=== PATIENT | male | born 1985 | race Caucasian/White ===

== ENCOUNTER 2019-03-01 07:27 | Emergency (ER) | payer SELFPAY ==
[~2019-03-01] VITALS: Ht 157.5 cm; Wt 71.0 kg
[2019-03-01 09:31] VITALS: BP 120/75
== END 2019-03-01 09:32 | disposition home or self-care (01) ==
LOC: ER 07:42
DX: L73.1 Pseudofolliculitis barbae (principal); F12.10 Cannabis abuse, uncomplicated
CPT/HCPCS: 99281

== ENCOUNTER 2020-09-25 10:27 | Emergency (ER) | payer SELFPAY ==
[~2020-09-25] VITALS: Ht 167.6 cm; Wt 80.0 kg
[2020-09-25] MEDS ORDERED: FOLIC ACID 1 MG, THIAMINE HCL 100 MG, MVI, ADULT NO.1 10 ML in DEXTROSE 5% WATER 1,000 ML IV ONE ×4 (11:00)
[2020-09-25] MEDS ORDERED: LORAZEPAM 2MG/ML CPJ IV ONE (11:00)
[2020-09-25] MEDS ORDERED: SODIUM CHLORIDE 0.9% 1,000 ML IV ONE (11:00)
[2020-09-25] MEDS ORDERED: FOLIC ACID 1 MG, THIAMINE HCL 100 MG in DEXTROSE 5% WATER 1,000 ML IV ONE (11:00)
[2020-09-25 11:11] LABS: BASOPHILS % 0.6 % (0.0-2.0); EOSINOPHILS % 0.4 % (0.0-5.0); HEMATOCRIT. 38.7 % (42.0-52.0); HEMOGLOBIN. 13.3 g/dL (14.0-18.0); LYMPHOCYTES % 9.6 % (20.0-50.0); MEAN CORPUSCULAR HEMOGLOBIN 35.4 pg (28.0-32.0); MEAN CORPUSCULAR VOLUME 102.5 fL (80.0-94.0); MEAN PLATELET VOLUME 8.2 fl (7.4-10.4); MONOCYTES % 5.7 % (2.0-8.0); NEUTROPHILS % 83.7 % (40.0-76.0); PLATELET 104 x1000/uL (130-400); RED BLOOD CELL COUNT 3.77 mill/uL (4.7-6.1); RED CELL DISTRIBUTION WIDTH 14.1 % (11.6-14.6)
[2020-09-25 11:23] LABS: CHLORIDE 102 mEq/L (98-107)
[2020-09-25 11:29] LABS: ETHANOL BLOOD < 10 mg/dL
[2020-09-25] MEDS ORDERED: LORAZEPAM 2MG/ML CPJ IM PRN (14:00)
[2020-09-25 15:48] LABS: *BARBITURATES SCREEN URINE NEGATIVE (NEGATIVE); *BENZODIAZEPINES SCREEN URINE NEGATIVE (NEGATIVE); *COCAINE SCREEN URINE NEGATIVE (NEGATIVE); METHADONE URINE SCREEN NEGATIVE (NEGATIVE); OPIATES URINE SCREEN NEGATIVE (NEGATIVE); PHENCYCLIDINE URINE SCREEN NEGATIVE (NEGATIVE)
[2020-09-25 15:49] LABS: *AMPHETAMINES SCREEN URINE NEGATIVE (NEGATIVE); CANNABINOID URINE SCREEN PRESUMTIVE POSITIVE (NEGATIVE)
[2020-09-25 16:00] VITALS: BP 117/60
== END 2020-09-25 16:51 | disposition home or self-care (01) ==
LOC: ER 10:27
DX: F10.139 Alcohol abuse with withdrawal, unspecified (principal); Y90.0 Blood alcohol level of less than 20 mg/100 ml; R07.89 Other chest pain
CPT/HCPCS: 36415; 71045; 80053; 80305; 80320; 83605; 83880; 84484; 85025; 93005; 96365; 96375; 99285; J2060; J3411; J3490; J7030; J7070; G0480

== ENCOUNTER 2022-03-01 23:04 | Inpatient (IN) | payer MEDICAID ==
[~2022-03-01] VITALS: Ht 157.5 cm; Wt 65.9 kg
[2022-03-01] MEDS ORDERED: CALCIUM GLUCONATE 100MG/ML 10ML VIAL IV ONE (23:30)
[2022-03-01 23:34] LABS: BASOPHILS % 0.5 % (0.0-2.0); EOSINOPHILS % 0.1 % (0.0-5.0); LYMPHOCYTES % 8.2 % (20.0-50.0); MEAN CORPUSCULAR HEMOGLOBIN 37.6 pg (28.0-32.0); MEAN CORPUSCULAR VOLUME 115.6 fL (80.0-94.0); MEAN PLATELET VOLUME 8.3 fl (7.4-10.4); MONOCYTES % 7.7 % (2.0-8.0); NEUTROPHILS % 83.5 % (40.0-76.0); PLATELET 142 x1000/uL (130-400); RED BLOOD CELL COUNT 1.63 mill/uL (4.7-6.1)
[2022-03-01 23:41] LABS: CHLORIDE 91 mEq/L (98-107)
[2022-03-01 23:45] LABS: HEMOGLOBIN. 6.2 g/dL (14.0-18.0)
[2022-03-01 23:46] LABS: HEMATOCRIT. 18.9 % (42.0-52.0)
[2022-03-01 23:52] LABS: ETHANOL BLOOD 220 mg/dL
[2022-03-02] VITALS (19 sets, daily range): BP systolic 91–111; BP diastolic 5–62
[2022-03-02 00:20] LABS: PLATELET ESTIMATE NORMAL
[2022-03-02] MEDS ORDERED: POTASSIUM CHLORIDE 20MEQ TABLET SR PO NR (00:30)
[2022-03-02] MEDS ORDERED: LACTULOSE 20G/30ML UDC PO NR (00:30)
[2022-03-02] MEDS ORDERED: POTASSIUM CHLORIDE INJ 30 MEQ in DEXT 5%/0.9% NACL 1,000 ML IV ONE (01:00)
[2022-03-02 09:15] LABS: CHLORIDE 100 mEq/L (98-107)
[2022-03-02 09:27] LABS: CLARITY URINE CLEAR (CLEAR); COLOR URINE DARK YELLOW (YELLOW); KETONES URINE NEGATIVE (NEGATIVE); LEUKOCYTE ESTERASE URINE TRACE (NEGATIVE); NITRITE URINE POSITIVE (NEGATIVE); OCCULT BLOOD URINE NEGATIVE (NEGATIVE); PROTEIN URINE 1+ (NEGATIVE); SPECIFIC GRAVITY URINE 1.013 (1.005-1.030)
[2022-03-02 09:47] LABS: *AMPHETAMINES SCREEN URINE NEGATIVE (NEGATIVE); *BARBITURATES SCREEN URINE NEGATIVE (NEGATIVE); *BENZODIAZEPINES SCREEN URINE NEGATIVE (NEGATIVE); *COCAINE SCREEN URINE NEGATIVE (NEGATIVE); CANNABINOID URINE SCREEN PRESUMTIVE POSITIVE (NEGATIVE); METHADONE URINE SCREEN NEGATIVE (NEGATIVE); OPIATES URINE SCREEN NEGATIVE (NEGATIVE); PHENCYCLIDINE URINE SCREEN NEGATIVE (NEGATIVE)
[2022-03-02] MEDS ORDERED: POTASSIUM CHLORIDE INJ 40 MEQ in DEXT 5% WATER 250 ML IV ONE (10:45)
[2022-03-02] MEDS ORDERED: KCL 20MEQ/100ML PREMIX 100 ML IV ONE (10:45)
[2022-03-02] MEDS ORDERED: GUAIFENESIN 200MG/10ML SUGAR FREE UDC PO PRN (11:45)
[2022-03-02] MEDS ORDERED: ENOXAPARIN 40MG/0.4ML SYR SUBCUT SCH (11:45)
[2022-03-02] MEDS ORDERED: HYDRALAZINE 20MG/ML VIAL IV PRN (11:45)
[2022-03-02] MEDS ORDERED: DOCUSATE SODIUM 100MG CAPSULE PO PRN (11:45)
[2022-03-02] MEDS ORDERED: DIPHENHYDRAMINE 50MG/ML VIAL IV PRN (11:45)
[2022-03-02] MEDS ORDERED: IPRATROPIUM/ALBUTEROL 0.5-3(2.5)MG/3ML NEB HHN PRN (11:45)
[2022-03-02] MEDS ORDERED: ONDANSETRON HCL 4MG/2ML INJ IV PRN (11:45)
[2022-03-02] MEDS ORDERED: MAGNESIUM/ALUMINUM HYDROXIDE/SIMETHICONE 30ML UDC PO PRN (11:45)
[2022-03-02] MEDS ORDERED: ACETAMINOPHEN 325MG TABLET PO PRN (11:45)
[2022-03-02] MEDS ORDERED: MORPHINE SULFATE 2 MG/ML CPJ (NOT FOR IM USE) IV PRN (11:45)
[2022-03-02] MEDS ORDERED: CLONIDINE 0.1MG TABLET PO PRN (11:45)
[2022-03-02] MEDS ORDERED: POTASSIUM CHLORIDE INJ 60 MEQ in DEXT 5% WATER 500 ML IV ONE (12:00)
[2022-03-02] MEDS: DEXTROSE 5% WATER 1,000 ML IV SCH (12:04)
[2022-03-02] MEDS: CHLORDIAZEPOXIDE 25MG CAPSULE PO SCH ×2 (12:16→21:35)
[2022-03-02] MEDS ORDERED: CHLORDIAZEPOXIDE 25MG CAPSULE PO SCH (14:00)
[2022-03-02] MEDS: SODIUM CHLORIDE 0.9% INJ 3ML FLUSH IVF SCH ×2 (14:00→21:35)
[2022-03-02] MEDS: OMEPRAZOLE 20MG CAPSULE EXTENDED RELEASE PO SCH (16:33)
[2022-03-02] MEDS: MULTIVITAMINS,THER W-MINERALS TABLET PO SCH (16:33)
[2022-03-02] MEDS: FOLIC ACID 1MG TABLET PO SCH (16:33)
[2022-03-02] MEDS: HYDROCODONE/ACETAMINOPHEN 5/325MG TABLET PO PRN (16:42)
[2022-03-02 17:11] LABS: HEMOGLOBIN 6.2 g/dL (14.0-18.0)
[2022-03-02 17:12] LABS: HEMATOCRIT 18.6 % (42.0-52.0)
[2022-03-02 17:29] LABS: TOTAL IRON BINDING CAPACITY 165 ug/dL (250-450)
[2022-03-02 17:44] LABS: FERRITIN 40 ng/mL (22-322)
[2022-03-02 17:53] LABS: VITAMIN B12 SERUM 1851 pg/mL (211-911)
[2022-03-02 17:55] LABS: HEPATITIS B SURFACE ANTIGEN NEGATIVE
[2022-03-02] MEDS ORDERED: THIAMINE HCL 100 MG in SODIUM CHLORIDE 0.9% 49 ML IV NR (18:00)
[2022-03-02 18:40] LABS: INR 1.8
[2022-03-02] MEDS ORDERED: NALOXONE HCL 0.4MG/ML VIAL IV PRN (21:00)
[2022-03-02] MEDS: LACTULOSE 20G/30ML UDC PO SCH (21:35)
[2022-03-02] MEDS: RIFAXIMIN 550 MG TABLET PO SCH (21:35)
[2022-03-03] VITALS (15 sets, daily range): BP systolic 95–125; BP diastolic 49–77
[2022-03-03] MEDS: SODIUM CHLORIDE 0.9% INJ 3ML FLUSH IVF SCH ×3 (06:00→22:00)
[2022-03-03 06:29] LABS: BASOPHILS % 0.7 % (0.0-2.0); EOSINOPHILS % 0.1 % (0.0-5.0); HEMATOCRIT. 22.4 % (42.0-52.0); HEMOGLOBIN. 7.7 g/dL (14.0-18.0); MEAN CORPUSCULAR HEMOGLOBIN 35.6 pg (28.0-32.0); MEAN CORPUSCULAR VOLUME 103.4 fL (80.0-94.0); MEAN PLATELET VOLUME 8.5 fl (7.4-10.4); MONOCYTES % 8.1 % (2.0-8.0); NEUTROPHILS % 80.1 % (40.0-76.0); PLATELET 79 x1000/uL (130-400); RED BLOOD CELL COUNT 2.17 mill/uL (4.7-6.1); RED CELL DISTRIBUTION WIDTH 28.3 % (11.6-14.6)
[2022-03-03 06:43] LABS: CHLORIDE 103 mEq/L (98-107)
[2022-03-03] MEDS: CHLORDIAZEPOXIDE 25MG CAPSULE PO SCH ×3 (06:48→22:55)
[2022-03-03] MEDS: LACTULOSE 20G/30ML UDC PO SCH ×3 (06:48→22:55)
[2022-03-03] MEDS: OMEPRAZOLE 20MG CAPSULE EXTENDED RELEASE PO SCH (07:30)
[2022-03-03] MEDS: MULTIVITAMINS,THER W-MINERALS TABLET PO SCH (09:17)
[2022-03-03] MEDS: RIFAXIMIN 550 MG TABLET PO SCH ×2 (09:17→22:55)
[2022-03-03] MEDS: FOLIC ACID 1MG TABLET PO SCH (09:17)
[2022-03-03] MEDS: DEXTROSE 5% WATER 1,000 ML IV SCH (11:00)
[2022-03-03] MEDS ORDERED: POTASSIUM CHLORIDE 20MEQ TABLET SR PO NR (13:39)
[2022-03-03] MEDS: HYDROCODONE/ACETAMINOPHEN 5/325MG TABLET PO PRN (22:56)
[2022-03-04] VITALS (12 sets, daily range): BP systolic 94–110; BP diastolic 41–56
[2022-03-04] MEDS: SODIUM CHLORIDE 0.9% INJ 3ML FLUSH IVF SCH ×3 (06:00→22:04)
[2022-03-04 06:12] LABS: EOSINOPHILS % 0.1 % (0.0-5.0); HEMOGLOBIN. 7.7 g/dL (14.0-18.0); LYMPHOCYTES % 13.3 % (20.0-50.0); MEAN CORPUSCULAR HEMOGLOBIN 35.9 pg (28.0-32.0); MEAN CORPUSCULAR VOLUME 103.1 fL (80.0-94.0); MEAN PLATELET VOLUME 8.2 fl (7.4-10.4); MONOCYTES % 7.8 % (2.0-8.0); NEUTROPHILS % 77.8 % (40.0-76.0); PLATELET 71 x1000/uL (130-400); RED BLOOD CELL COUNT 2.14 mill/uL (4.7-6.1); RED CELL DISTRIBUTION WIDTH 28.5 % (11.6-14.6)
[2022-03-04 06:30] LABS: CHLORIDE 104 mEq/L (98-107)
[2022-03-04] MEDS: CHLORDIAZEPOXIDE 25MG CAPSULE PO SCH ×3 (06:45→21:58)
[2022-03-04] MEDS: LACTULOSE 20G/30ML UDC PO SCH ×3 (06:45→21:58)
[2022-03-04] MEDS: OMEPRAZOLE 20MG CAPSULE EXTENDED RELEASE PO SCH (08:45)
[2022-03-04] MEDS: MULTIVITAMINS,THER W-MINERALS TABLET PO SCH (08:45)
[2022-03-04] MEDS: RIFAXIMIN 550 MG TABLET PO SCH ×2 (08:45→21:58)
[2022-03-04] MEDS: THIAMINE HCL 100MG TABLET PO SCH (08:45)
[2022-03-04] MEDS: FOLIC ACID 1MG TABLET PO SCH (08:45)
[2022-03-04] MEDS: DEXTROSE 5% WATER 1,000 ML IV SCH (14:16)
[2022-03-05] VITALS (17 sets, daily range): BP systolic 90–111; BP diastolic 39–58
[2022-03-05] MEDS: LACTULOSE 20G/30ML UDC PO SCH ×3 (06:00→21:38)
[2022-03-05 06:38] LABS: INR 1.9
[2022-03-05] MEDS: CHLORDIAZEPOXIDE 25MG CAPSULE PO SCH ×3 (06:38→21:37)
[2022-03-05 06:40] LABS: BASOPHILS % 0.9 % (0.0-2.0); EOSINOPHILS % 0.1 % (0.0-5.0); HEMOGLOBIN. 7.1 g/dL (14.0-18.0); LYMPHOCYTES % 13.5 % (20.0-50.0); MEAN CORPUSCULAR HEMOGLOBIN 35.5 pg (28.0-32.0); MEAN CORPUSCULAR VOLUME 105.4 fL (80.0-94.0); MEAN PLATELET VOLUME 8.5 fl (7.4-10.4); MONOCYTES % 6.9 % (2.0-8.0); NEUTROPHILS % 78.6 % (40.0-76.0); PLATELET 66 x1000/uL (130-400); RED CELL DISTRIBUTION WIDTH 28.1 % (11.6-14.6)
[2022-03-05] MEDS: SODIUM CHLORIDE 0.9% INJ 3ML FLUSH IVF SCH ×3 (06:43→21:38)
[2022-03-05 06:53] LABS: CHLORIDE 102 mEq/L (98-107)
[2022-03-05] MEDS: OMEPRAZOLE 20MG CAPSULE EXTENDED RELEASE PO SCH (07:30)
[2022-03-05] MEDS: THIAMINE HCL 100MG TABLET PO SCH (09:00)
[2022-03-05] MEDS: MULTIVITAMINS,THER W-MINERALS TABLET PO SCH (09:00)
[2022-03-05] MEDS: RIFAXIMIN 550 MG TABLET PO SCH ×2 (09:00→21:37)
[2022-03-05] MEDS: FOLIC ACID 1MG TABLET PO SCH (09:00)
[2022-03-05] MEDS ORDERED: KCL 20MEQ/100ML PREMIX 100 ML IV SCH (11:00)
[2022-03-05] MEDS: PHYTONADIONE 10MG/ML AMP SUBCUT SCH (12:40)
[2022-03-05] MEDS ORDERED: POTASSIUM CHLORIDE 20MEQ TABLET SR PO NR (14:00)
[2022-03-05 15:30] LABS: HEMATOCRIT 23.1 % (42.0-52.0); HEMOGLOBIN 7.7 g/dL (14.0-18.0)
[2022-03-05 21:11] LABS: HEMATOCRIT 25.7 % (42.0-52.0); HEMOGLOBIN 8.6 g/dL (14.0-18.0)
[2022-03-06] VITALS (16 sets, daily range): BP systolic 90–105; BP diastolic 38–57
[2022-03-06 01:04] LABS: HEMATOCRIT 23.5 % (42.0-52.0); HEMOGLOBIN 7.8 g/dL (14.0-18.0)
[2022-03-06 01:35] LABS: INR 1.9; PROTHROMBIN TIME 19.6 sec (9.6-11.0)
[2022-03-06] MEDS: POTASSIUM CHLORIDE INJ 40 MEQ in DEXTROSE 5% WATER 1,000 ML IV SCH (04:05)
[2022-03-06 05:55] LABS: CHLORIDE 105 mEq/L (98-107)
[2022-03-06] MEDS: LACTULOSE 20G/30ML UDC PO SCH ×3 (06:00→21:24)
[2022-03-06 06:10] LABS: BASOPHILS % 0.8 % (0.0-2.0); HEMATOCRIT. 23.4 % (42.0-52.0); HEMOGLOBIN. 7.8 g/dL (14.0-18.0); LYMPHOCYTES % 11.2 % (20.0-50.0); MEAN CORPUSCULAR HEMOGLOBIN 34.8 pg (28.0-32.0); MEAN CORPUSCULAR VOLUME 104.1 fL (80.0-94.0); MEAN PLATELET VOLUME 8.4 fl (7.4-10.4); MONOCYTES % 7.4 % (2.0-8.0); NEUTROPHILS % 80.6 % (40.0-76.0); PLATELET 63 x1000/uL (130-400); RED BLOOD CELL COUNT 2.25 mill/uL (4.7-6.1); RED CELL DISTRIBUTION WIDTH 27.5 % (11.6-14.6)
[2022-03-06 06:14] LABS: INR 1.8; PROTHROMBIN TIME 18.5 sec (9.6-11.0)
[2022-03-06] MEDS: SODIUM CHLORIDE 0.9% INJ 3ML FLUSH IVF SCH ×3 (06:44→21:24)
[2022-03-06] MEDS: OMEPRAZOLE 20MG CAPSULE EXTENDED RELEASE PO SCH (06:44)
[2022-03-06] MEDS: CHLORDIAZEPOXIDE 25MG CAPSULE PO SCH ×3 (06:44→21:24)
[2022-03-06] MEDS: PHYTONADIONE 10MG/ML AMP SUBCUT SCH (08:21)
[2022-03-06] MEDS ORDERED: MIDAZOLAM HCL 5 MG/5 ML VIAL ONE (08:30)
[2022-03-06] MEDS ORDERED: PROPOFOL 200MG/20ML VIAL IV ONE (08:30)
[2022-03-06] MEDS ORDERED: LIDOCAINE HCL 1% 10 MG/ML 10ML VIAL ONE (08:30)
[2022-03-06] MEDS ORDERED: PHENYLEPHRINE HCL 10 MG/ML 1ML (IV VIAL) IV ONE (08:44)
[2022-03-06] MEDS ORDERED: MAGNESIUM 2 G PREMIX 50 ML IV NR (10:00)
[2022-03-06] MEDS: MULTIVITAMINS,THER W-MINERALS TABLET PO SCH (11:04)
[2022-03-06] MEDS: THIAMINE HCL 100MG TABLET PO SCH (11:04)
[2022-03-06] MEDS: FOLIC ACID 1MG TABLET PO SCH (11:04)
[2022-03-06] MEDS: RIFAXIMIN 550 MG TABLET PO SCH ×2 (11:05→21:24)
[2022-03-06] MEDS: METOCLOPRAMIDE HCL 10MG/2ML VIAL IV SCH ×3 (12:13→21:24)
[2022-03-06 20:04] LABS: PLATELET ESTIMATE DECREASED
[2022-03-07] VITALS (7 sets, daily range): BP systolic 91–96; BP diastolic 38–50
[2022-03-07] MEDS: POTASSIUM CHLORIDE INJ 40 MEQ in DEXTROSE 5% WATER 1,000 ML IV SCH (02:40)
[2022-03-07] MEDS: METOCLOPRAMIDE HCL 10MG/2ML VIAL IV SCH ×3 (06:19→21:29)
[2022-03-07] MEDS: LACTULOSE 20G/30ML UDC PO SCH ×3 (06:19→21:29)
[2022-03-07] MEDS: SODIUM CHLORIDE 0.9% INJ 3ML FLUSH IVF SCH ×3 (06:19→21:29)
[2022-03-07] MEDS: OMEPRAZOLE 20MG CAPSULE EXTENDED RELEASE PO SCH (06:19)
[2022-03-07] MEDS: CHLORDIAZEPOXIDE 25MG CAPSULE PO SCH (06:19)
[2022-03-07 06:34] LABS: CHLORIDE 106 mEq/L (98-107)
[2022-03-07 06:48] LABS: BASOPHILS % 0.6 % (0.0-2.0); EOSINOPHILS % 0.1 % (0.0-5.0); HEMATOCRIT. 22.6 % (42.0-52.0); HEMOGLOBIN. 7.5 g/dL (14.0-18.0); MEAN CORPUSCULAR VOLUME 105.2 fL (80.0-94.0); MEAN PLATELET VOLUME 8.7 fl (7.4-10.4); MONOCYTES % 10.5 % (2.0-8.0); NEUTROPHILS % 72.8 % (40.0-76.0); PLATELET 61 x1000/uL (130-400); RED BLOOD CELL COUNT 2.14 mill/uL (4.7-6.1)
[2022-03-07] MEDS: THIAMINE HCL 100MG TABLET PO SCH (09:56)
[2022-03-07] MEDS: FOLIC ACID 1MG TABLET PO SCH (09:57)
[2022-03-07] MEDS: MULTIVITAMINS,THER W-MINERALS TABLET PO SCH (09:57)
[2022-03-07] MEDS: PHYTONADIONE 10MG/ML AMP SUBCUT SCH (09:57)
[2022-03-07] MEDS: RIFAXIMIN 550 MG TABLET PO SCH ×2 (09:57→21:29)
[2022-03-08] VITALS: BP 93/43
[2022-03-08 02:22] LABS: BASOPHILS % 0.8 % (0.0-2.0); EOSINOPHILS % 0.2 % (0.0-5.0); HEMATOCRIT. 24.3 % (42.0-52.0); HEMOGLOBIN. 8.2 g/dL (14.0-18.0); LYMPHOCYTES % 17.5 % (20.0-50.0); MEAN CORPUSCULAR HEMOGLOBIN 35.4 pg (28.0-32.0); MEAN CORPUSCULAR VOLUME 105.4 fL (80.0-94.0); MEAN PLATELET VOLUME 8.7 fl (7.4-10.4); NEUTROPHILS % 69.5 % (40.0-76.0); PLATELET 62 x1000/uL (130-400); RED BLOOD CELL COUNT 2.31 mill/uL (4.7-6.1); RED CELL DISTRIBUTION WIDTH 28.3 % (11.6-14.6)
[2022-03-08 02:24] LABS: CHLORIDE 110 mEq/L (98-107)
[2022-03-08 04:00] VITALS: BP 96/52
[2022-03-08] MEDS: POTASSIUM CHLORIDE INJ 40 MEQ in DEXTROSE 5% WATER 1,000 ML IV SCH (04:00)
[2022-03-08 05:24] LABS: INR 1.6; PROTHROMBIN TIME 16.9 sec (9.6-11.0)
[2022-03-08] MEDS: METOCLOPRAMIDE HCL 10MG/2ML VIAL IV SCH ×4 (05:40→20:36)
[2022-03-08] MEDS: LACTULOSE 20G/30ML UDC PO SCH ×3 (05:40→20:36)
[2022-03-08] MEDS: SODIUM CHLORIDE 0.9% INJ 3ML FLUSH IVF SCH ×3 (05:40→20:36)
[2022-03-08] MEDS: OMEPRAZOLE 20MG CAPSULE EXTENDED RELEASE PO SCH (05:41)
[2022-03-08 08:00] VITALS: BP 92/51
[2022-03-08] MEDS: FOLIC ACID 1MG TABLET PO SCH ×2 (09:00→14:56)
[2022-03-08] MEDS: MULTIVITAMINS,THER W-MINERALS TABLET PO SCH ×2 (09:00→14:54)
[2022-03-08] MEDS: THIAMINE HCL 100MG TABLET PO SCH ×2 (09:00→14:56)
[2022-03-08 12:00] VITALS: BP 86/52
[2022-03-08] MEDS ORDERED: PROPOFOL 200MG/20ML VIAL IV ONE (12:53)
[2022-03-08] MEDS ORDERED: LABETALOL 5MG/ML SYR 20 MG/4 ML SYRINGE IV PRN ×2 (13:15)
[2022-03-08] MEDS ORDERED: ONDANSETRON HCL 4MG/2ML INJ IV PRN ×2 (13:15)
[2022-03-08] MEDS ORDERED: MEPERIDINE HCL/PF 25MG/ML CPJ IV PRN ×2 (13:15)
[2022-03-08] MEDS ORDERED: HYDROMORPHONE HCL/PF 2MG/ML CPJ IV PRN ×2 (13:15)
[2022-03-08 16:00] VITALS: BP 93/52
[2022-03-08 20:00] VITALS: BP 95/57
[2022-03-09] VITALS (9 sets, daily range): BP systolic 94–99; BP diastolic 49–59
[2022-03-09] MEDS: POTASSIUM CHLORIDE INJ 40 MEQ in DEXTROSE 5% WATER 1,000 ML IV SCH (04:43)
[2022-03-09] MEDS: OMEPRAZOLE 20MG CAPSULE EXTENDED RELEASE PO SCH (06:01)
[2022-03-09] MEDS: METOCLOPRAMIDE HCL 10MG/2ML VIAL IV SCH ×4 (06:01→21:00)
[2022-03-09] MEDS: LACTULOSE 20G/30ML UDC PO SCH ×3 (06:01→22:51)
[2022-03-09] MEDS: SODIUM CHLORIDE 0.9% INJ 3ML FLUSH IVF SCH ×3 (06:02→22:00)
[2022-03-09 07:12] LABS: CHLORIDE 105 mEq/L (98-107)
[2022-03-09 07:36] LABS: EOSINOPHILS % 0.2 % (0.0-5.0); HEMATOCRIT. 22.1 % (42.0-52.0); HEMOGLOBIN. 7.5 g/dL (14.0-18.0); MEAN CORPUSCULAR HEMOGLOBIN 35.7 pg (28.0-32.0); MEAN CORPUSCULAR VOLUME 105.4 fL (80.0-94.0); MONOCYTES % 9.9 % (2.0-8.0); NEUTROPHILS % 70.9 % (40.0-76.0); RED CELL DISTRIBUTION WIDTH 27.4 % (11.6-14.6)
[2022-03-09] MEDS: MULTIVITAMINS,THER W-MINERALS TABLET PO SCH (08:11)
[2022-03-09] MEDS: FOLIC ACID 1MG TABLET PO SCH (08:11)
[2022-03-09] MEDS: THIAMINE HCL 100MG TABLET PO SCH (08:11)
[2022-03-09 08:32] LABS: PLATELET 63 x1000/uL (130-400)
== END 2022-03-10 00:02 | disposition home or self-care (01) | DRG 280 ==
LOC: ER 23:04 → MICUSO 03-02 01:47 → ENRESERV 03-02 05:00 → 5EST 03-02 06:27 → 8WST 03-07 12:20
PROVIDERS: ADMIT Internal Medicine; ATTEND Internal Medicine
PROC: 30233N1 Transfusion of Nonautologous Red Blood Cells into Peripheral Vein, Percutaneous Approach (ICD-10-PCS; 2022-03-02)
PROC: 0DB78ZX Excision of Stomach, Pylorus, Via Natural or Artificial Opening Endoscopic, Diagnostic (ICD-10-PCS; principal; 2022-03-06)
PROC: 06L38CZ Occlusion of Esophageal Vein with Extraluminal Device, Via Natural or Artificial Opening Endoscopic (ICD-10-PCS; 2022-03-08)
DX: K70.31 Alcoholic cirrhosis of liver with ascites (principal); K70.11 Alcoholic hepatitis with ascites; G92.9 Unspecified toxic encephalopathy; K29.71 Gastritis, unspecified, with bleeding; E46 Unspecified protein-calorie malnutrition; E72.20 Disorder of urea cycle metabolism, unspecified; N17.9 Acute kidney failure, unspecified; I85.00 Esophageal varices without bleeding; K72.90 Hepatic failure, unspecified without coma; K29.81 Duodenitis with bleeding; K76.6 Portal hypertension; D53.9 Nutritional anemia, unspecified; E86.0 Dehydration; E87.6 Hypokalemia; N39.0 Urinary tract infection, site not specified; Z20.822 Contact with and (suspected) exposure to COVID-19; E80.6 Other disorders of bilirubin metabolism; F12.90 Cannabis use, unspecified, uncomplicated; F10.229 Alcohol dependence with intoxication, unspecified; Z68.26 Body mass index [BMI] 26.0-26.9, adult; K31.89 Other diseases of stomach and duodenum
CPT/HCPCS: 36415; 76700; 80048; 80053; 80076; 80305; 80320; 81003; 82140; 82248; 82270; 82607; 82728; 82746; 82962; 83540; 83550; 83735; 83880; 85014; 85018; 85025; 85044; 86705; 86709; 86803; 86850; 86900; 86920; 87340; 87426; 88305; 88312; 88313; 93005; 99285; J0610; J2250; J2370; J2704; J2765; J3411; J3430; J3475; J3480; J3490; J7042; J7060; J7070; P9016; G0480

== ENCOUNTER 2022-03-14 17:29 | Emergency (ER) | payer MEDICAID ==
[~2022-03-14] VITALS: Ht 167.6 cm; Wt 64.0 kg
[2022-03-14 17:30] VITALS: BP 96/51
== END 2022-03-14 20:36 | disposition home or self-care (01) ==
LOC: ER 17:29
DX: S01.81XA Laceration without foreign body of other part of head, initial encounter (principal); K76.9 Liver disease, unspecified; F15.10 Other stimulant abuse, uncomplicated; F10.21 Alcohol dependence, in remission; Z87.891 Personal history of nicotine dependence; W26.8XXA Contact with other sharp object(s), not elsewhere classified, initial encounter; Y93.89 Activity, other specified; Y92.018 Other place in single-family (private) house as the place of occurrence of the external cause
CPT/HCPCS: 99281